=== PATIENT | female | born 1995 | race Caucasian/White ===

== ENCOUNTER 2023-05-11 07:39 | Outpatient (AMB) | payer OTHER, SELFPAY ==
[2023-05-11 07:41] VITALS: BP 102/66; PULSE 92; O2SAT 97; BMI 42.4
--- NOTE | 2023-05-11 07:41 | A.OFFPC_ITS ---
Vital Signs 05/11/23 07:41 Height 5 ft 5 in Weight 255 lb BMI 42.4 BP 102/66 Blood Pressure Location Lt brachial Position Sitting Pulse 92 Pulse Source Pulse Oximeter Pulse Oximetry (%) 97 Oxygen Delivery Method Room Air Intake Visit Reasons: New patient-Follow up on broken right leg Intake Note: Pt is here today for New patient visit PE. Allergies No Known Allergies Allergy (Verified 05/11/23 07:43) Medication List - Last Reconciled 05/11/23 by Deysi Worrell MD acetaminophen 1,000 mg PO Q8H PRN naproxen sodium 275 mg PO BID PRN Tobacco use date assessed: 05/11/23 Dental Screening Dental Screen Date: 05/11/23 Did you have a dental visit in the last 12 months?: Yes Did you have a dental problem in the last 6 months where you did not have access to dental care?: No Was dental information given to patient?: Patient has dentist HPI New patient-Follow up on broken right leg HPI Details Pt presents for [employer] PE. [facility] Medical History (Updated 05/11/23 @ 08:10 by Deysi Worrell MD) Recent surgical procedure on lower extremity Family History Father No problems noted. 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 1. Little interest or pleasure in doing things: not at all 2. Feeling down, depressed, or hopeless: not at all 3. Trouble falling or staying asleep, or sleeping too much: not at all 4. Feeling tired or having little energy: several days 5. Poor appetite or overeating: not at all 6. Feeling bad about yourself - or that you are a failure or have let yourself or your family down: not at all 7. Trouble concentrating on things, such as reading the newspaper or watching television: several days 8. Moving or speaking so slowly that other people could have noticed. Or the opposite - being so fidgety or restless that you have been moving around a lot more than usual: not at all 9. Thoughts that you would be better off or of hurting yourself in some way: not at all Total score: 2 Depression Screening Interpretation: Negative Source: Developed by Drs. Daren Ruiz, Noelle Guallpa, Pillo Ricketts and colleagues, with an educational kim from [employer]. Thrive Questionnaire Date Thrive assessed: 05/11/23 I am a: Patient What is your living situation today?: I have a steady place to live Within the past 12 months, did the food you bought not last and you didn't have the money to get more?: Never true Within the past 12 months, did you worry whether your food would run out before you got money to buy more?: Never true Do you have trouble paying for medicines?: No Do you have trouble getting transportation to medical appointments?: No Do you have trouble paying your heating and electricity bill?: No Do you have trouble taking care of your child, family member or friend?: No Do you have trouble with day-to-day activities such as bathing, preparing meals, shopping, managing finances, etc.?: No Are you currently unemployed and looking for a job?: No Are you interested in more education?: No Please select the resources that you would like help with: None Currently or been in a relationship where the following occur: no concerns reported AUDIT C Alcohol Use Questionnaire (AUDIT-C) 1. How often do you have a drink containing alcohol?: Monthly or less 2. How many drinks containing alcohol do you have on a typical day when you are drinking?: 1 or 2 3. How often do you have six or more drinks on one occasion?: Never Total Score: 1 ABIGAIL-7 AMB Questionnaire ABIGAIL-7 Date ABIGAIL - 7 assessed: 05/11/23 Feeling nervous, anxious, or on edge: 0 = Not at all Not being able to stop or control worryin = More than half the days Worrying too much about different things: 2 = More than half the days Trouble relaxin = Several days Being so restless that it is hard to sit still: 1 = Several days Becoming easily annoyed or irritable: 2 = More than half the days Feeling afraid as if something awful might happen: 2 = More than half the days Total ABIGAIL-7 score (0-4 normal; 5-9 mild; 10-14 moderate; 15-21 severe): 10 Source: Developed by Drs. Daren Ruiz, Noelle Guallpa, Pillo Ricketts and colleagues, with an educational kim from [employer]. Review of Systems Const All systems reviewed & are unremarkable except as noted in HPI and below Reports no additional complaints Eyes Reports no additional complaints ENT Reports no additional complaints Card Reports no additional complaints Resp Reports no additional complaints GI Reports no additional complaints Reports no additional complaints Physical exam (Primary Care) Vital Signs: Last Vital Signs Pulse 92 05/11/23 07:41 BP 102/66 05/11/23 07:41 Pulse Ox 97 05/11/23 07:41 Oxygen Delivery Method Room Air 05/11/23 07:41 BMI result Body Mass Index 42.4 Tobacco/Smoking Status: Tobacco use Status Tobacco use date assessed 05/11/23 05/11/23 07:53 Patient Tobacco Use Status Never used Tobacco 05/11/23 07:53 e-Cigarette/Vaping Use Never Used 05/11/23 07:53 Depression Screening Interpretation: Negative Currently or been in a relationship where the following occur: no concerns reported Const General: no acute distress HENMT Head: Yes normal to inspection Ears: hearing grossly normal bilaterally General nose exam: Normal external nose present Face and sinus: Yes normal facial exam Mouth: Normal oral and palatal mucosa present Throat: Yes posterior oropharynx normal Eyes General: appearance normal, both eyes and all related structures Neck Neck: Yes no lymphadenopathy and Yes supple Resp Effort & Inspection: normal respiratory effort Auscultation: clear to auscultation bilaterally Cardio Rhythm: regular rhythm Heart sounds: S1 normal heart sound present and S2 normal heart sound present GI Inspection: Yes normal to inspection Palpation (GI): Soft to palpation Percussion: Yes normal to percussion Auscultation: normal bowel sounds Assessment and Plan Assessment & Plan (1) Overweight: Code(s): E66.3 - Overweight Plan: Increasing physical activity weight loss discussed with the patient (2) Annual physical exam: Code(s): Z00.00 - Encounter for general adult medical examination without abnormal findings Plan: Patient with fasting blood work, she follows up with farm helper for Pap smear (3) Normal pelvic exam: Comment: CHARLES Saldivar Code(s): Z01.419 - Encounter for gynecological examination (general) (routine) without abnormal findings (4) Miscarriage: Comment: at 4 month twins Code(s): O03.9 - Complete or unspecified spontaneous without complication Orders: Orders Comprehensive [place]. Panel Fast Today Z00.00 - Encounter for general adult medical examination without abnormal findings Lipid Panel Today Z00.00 - Encounter for general adult medical examination without abnormal findings TSH reflex Free T4 Today Z00.00 - Encounter for general adult medical examination without abnormal findings Complete Blood Count Auto Diff Today Z00.00 - Encounter for general adult medical examination without abnormal findings YONG Reflex Titer and Pattern Today O03.9 - Complete or unspecified spontaneous without complication, Z00.00 - Encounter for general adult medical examination without abnormal findings Lupus Anticoagulant Panel Today Z00.00 - Encounter for general adult medical examination without abnormal findings UA w Microscopic Today Z00.00 - Encounter for general adult medical examination without abnormal findings Coding Level of Care Code Est Pt Prev Care 18-39y(62206) Diagnoses Overweight E66.3 Annual physical exam Z00.00 Normal pelvic exam Z01.419 Miscarriage O03.9
== END 2023-05-11 08:52 | disposition home or self-care (01) ==
PROVIDERS: PCP Internal Medicine; Visit Provider Internal Medicine
DX: Z00.00 Encounter for general adult medical examination without abnormal findings (principal); E66.01 Morbid (severe) obesity due to excess calories; Z68.41 Body mass index [BMI] 40.0-44.9, adult
CPT/HCPCS: 99395

== ENCOUNTER 2023-05-11 08:26 | Outpatient (REF) | payer OTHER, SELFPAY ==
[2023-05-11 11:28] LABS: MANUAL DIFF FLAG NO
[2023-05-11 11:29] LABS: Basophils Percent Auto 0.5 % (0-2); Eosinophils Absolute Auto 0.2 X10*3/uL (0.0-0.4); Eosinophils Percent Auto 3.6 % (0-4); Hematocrit 43.1 % (37.0-47.0); Hemoglobin 14.2 g/dl (12.0-16.0); Imm Gran Abs Auto 0.02 X10*3/uL (0.00-0.03); Imm Gran Pct Auto 0.3 % (0.0-0.4); Lymphocytes Percent Auto 33.7 % (20-40); Mean Corpuscular HGB Conc 32.9 g/dl (31.0-35.0); Mean Corpuscular Hemoglobin 28.3 pg (27.0-33.0); Mean Platelet Volume 10.3 fL (9.4-12.3); Monocytes Absolute Auto 0.4 X10*3/uL (0.1-1.2); Monocytes Percent Auto 6.7 % (2-11); Neutrophils Absolute Auto 3.2 x10*3/uL (2.0-8.3); Neutrophils Percent Auto 55.2 % (45-73); Platelet Count 272 X10*3/uL (160-400); Red Blood Count 5.01 X10*6/uL (4.20-5.50); Red Cell Distribution Width 12.2 % (11.0-16.0); White Blood Count 5.8 X10*3/uL (4.8-10.8)
[2023-05-11 11:52] LABS: Appearance Urine Clear; Color Urine Yellow; Glucose Urine UA Negative (Negative); Leukocyte Esterase Urine Negative (Negative); Nitrite Urine Negative (Negative); Specific Gravity - Urine 1.025 (1.005-1.025); UMIC TRIGGER UA YES; Urine Blood Trace (Negative); Urine Ketones Trace mg/dL (Negative); Urine Protein Negative (Neg-Trace)
[2023-05-11 11:55] LABS: Bacteria Urine 1+ (None Seen); Hyaline Casts Urine 0-2 /LPF (0-2); RBC Urine 0-2 /HPF (0-2); WBC Urine 0-5 /HPF (0-5)
[2023-05-11 12:14] LABS: Alanine Aminotransferase 18 U/L (0-31); Albumin Level 4.1 g/dL (3.5-5.0); Alkaline Phosphatase 49 U/L (39-117); Anion Gap 11 (12-20); Aspartate Amino Transferase 14 U/L (5-31); Bilirubin Total 0.4 mg/dL (0.0-1.0); Blood Urea Nitrogen 16 mg/dL (9-16); Calcium 9.2 mg/dL (8.4-10.2); Carbon Dioxide 28 mmol/L (22-29); Chloride 106 mmol/L (96-108); Cholesterol 165 mg/dL; Estimated Glomerular Filt Rate > 60; Glucose Fasting 93 mg/dL (60-99); HDL Cholesterol 40 mg/dL; LDL Cholesterol Calculated 110 mg/dl; Potassium 4.5 mmol/L (3.3-5.1); Sodium 140 mmol/L (135-145); Total Protein 7.2 g/dL (6.5-8.0); Triglycerides 79 mg/dL
[2023-05-14 07:54] LABS: PTT (LAC) Screen 33 sec (<=40)
[2023-05-14 13:29] LABS: Anti Nuclear Antibody Screen NEGATIVE (NEGATIVE)
== END 2023-05-11 08:27 | disposition home or self-care (01) ==
LOC: HO.HMGCLDS 08:26
PROVIDERS: PCP Internal Medicine; Visit Provider Internal Medicine
DX: Z00.01 Encounter for general adult medical examination with abnormal findings (principal); O03.9 Complete or unspecified spontaneous abortion without complication
CPT/HCPCS: 36415; 80053; 80061; 81001; 84443; 85025; 85597; 85598; 85613; 85670; 85730; 86038

== ENCOUNTER 2024-11-16 08:57 | Outpatient (AMB) | payer BC, SELFPAY ==
--- NOTE | 2024-11-16 08:58 | MHC.PC.OV ---
Vital Signs 11/16/24 09:00 Height 5 ft 5.5 in Weight 256 lb BMI 41.9 BP 102/62 Blood Pressure Location Lt brachial Position Sitting Respiration 16 Pulse 87 Pulse Source Pulse Oximeter Temp 98.2 F Temp Source Oral Pulse Oximetry (%) 99 Oxygen Delivery Method Room Air Intake Visit Reasons: rash hands and feet Intake Note: Pt is here today c/o rash on bilateral hands and feet Allergies No Known Allergies Allergy (Verified 11/16/24 09:00) Medication List - Last Reconciled 11/16/24 by Deysi Worrell MD ketoconazole 400 mg (2 x 200 mg) PO DAILY ketoconazole 2% 1 appl topical BID Tobacco use date assessed: 11/16/24 Dental Screening Dental Screen Date: 11/16/24 Did you have a dental visit in the last 12 months?: Yes Did you have a dental problem in the last 6 months where you did not have access to dental care?: Yes Was dental information given to patient?: Patient has dentist HPI rash hands and feet HPI Details Patient presents complaining of itchy rash on her hands and feet for 6 months. 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 Patient tried [id number]-qodhhiv antifungal cream and has been using different hand moisturizers without improvement. [facility] Medical History (Updated 11/16/24 @ 09:40 by Deysi Worrell MD) Recent surgical procedure on lower extremity Family History Father No problems noted. Mother Lupus Cervical cancer Maternal Grandmother Cancer Paternal Grandmother Lung cancer Social History (Updated 05/11/23 @ 08:08 by Deysi Worrell MD) Household Members Other:: lives with partner, [employer] Housing: House Patient Tobacco Use Status: Never used Tobacco e-Cigarette/Vaping Use: Never Used Current occupational status: employed Cognitive needs: No Hearing needs: No Vision needs: Yes Questionnaire Thrive Questionnaire Date Thrive assessed: 11/16/24 I am a: Patient What is your living situation today?: I have a steady place to live Within the past 12 months, did the food you bought not last and you didn't have the money to get more?: Never true Within the past 12 months, did you worry whether your food would run out before you got money to buy more?: Never true Do you have trouble paying for medicines?: No Do you have trouble getting transportation to medical appointments?: No Do you have trouble paying your heating and electricity bill?: No Do you have trouble taking care of your child, family member or friend?: No Do you have trouble with day-to-day activities such as bathing, preparing meals, shopping, managing finances, etc.?: No Are you currently unemployed and looking for a job?: No Are you interested in more education?: No Please select the resources that you would like help with: None THRIVE Score: 0 AUDIT C Alcohol Use Questionnaire (AUDIT-C) 1. How often do you have a drink containing alcohol?: Monthly or less 2. How many drinks containing alcohol do you have on a typical day when you are drinking?: 1 or 2 3. How often do you have six or more drinks on one occasion?: Never Total Score: 1 ABIGAIL-7 AMB Questionnaire ABIGAIL-7 Date ABIGAIL - 7 assessed: 11/16/24 Feeling nervous, anxious, or on edge: 0 = Not at all Not being able to stop or control worryin = More than half the days Worrying too much about different things: 2 = More than half the days Trouble relaxin = Several days Being so restless that it is hard to sit still: 1 = Several days Becoming easily annoyed or irritable: 2 = More than half the days Feeling afraid as if something awful might happen: 2 = More than half the days Total ABIGAIL-7 score (0-4 normal; 5-9 mild; 10-14 moderate; 15-21 severe): 10 Source: Developed by Drs. Daren Ruiz, Noelle Guallpa, Pillo Rciketts and colleagues, with an educational kim from [employer]. Review of Systems Const All systems reviewed & are unremarkable except as noted in HPI and below Eyes Reports no additional complaints ENT Reports no additional complaints Card Reports no additional complaints Resp Reports no additional complaints GI Reports no additional complaints Reports no additional complaints Physical exam (Primary Care) Vital Signs: Last Vital Signs Temp 98.2 F 11/16/24 09:00 Pulse 87 11/16/24 09:00 Resp 16 11/16/24 09:00 BP 102/62 11/16/24 09:00 Pulse Ox 99 11/16/24 09:00 Oxygen Delivery Method Room Air 11/16/24 09:00 BMI result Body Mass Index 41.9 Tobacco/Smoking Status: Tobacco use Status Tobacco use date assessed 11/16/24 11/16/24 09:01 Patient Tobacco Use Status Never used Tobacco 11/16/24 09:01 e-Cigarette/Vaping Use Never Used 11/16/24 09:01 Thrive Assessment: Date of Thrive Assessment Date Thrive assessed 11/16/24 11/16/24 09:04 Const General: no acute distress Neck Neck: Yes no lymphadenopathy and Yes supple Resp Effort & Inspection: normal respiratory effort Auscultation: clear to auscultation bilaterally Cardio Rhythm: regular rhythm Heart sounds: S1 normal heart sound present and S2 normal heart sound present Skin Other: There is erythematous scaling rash on the palms of the hands and plantar aspect of feet and vesicular erythematous rash between toes Coding Level of Care Code Est Pt Level 3 (02707) Diagnoses Tinea cruris B35.6 Eczema L30.9 Assessment & Plan Assessment & Plan (1) Tinea cruris: Code(s): B35.6 - Tinea cruris Category: Medical Plan: Ketoconazole 400 mg daily for 1 week as prescribed. Skin care including avoiding prolonged moisture exposure changing shoes (2) Eczema: Code(s): L30.9 - Dermatitis, unspecified Category: Medical Plan: Patient was advised to avoid harsh antibacterial hand soaps. Patient was advised to Use hand moisturizer after each hand washing and avoid prolonged exposure to moisture. She will try clobetasol cream at night Orders: Orders Complete Blood Count Auto Diff 5 Months Z00.00 - Encounter for general adult medical examination without abnormal findings UA w Microscopic 5 Months Z00.00 - Encounter for general adult medical examination without abnormal findings Comprehensive [place]. Panel Fast 5 Months Z00.00 - Encounter for general adult medical examination without abnormal findings TSH reflex Free T4 5 Months Z00.00 - Encounter for general adult medical examination without abnormal findings Lipid Panel 5 Months Z00.00 - Encounter for general adult medical examination without abnormal findings Medications: New ketoconazole 400 mg (2 x 200 mg) PO DAILY 14 tabs 0RF ketoconazole 2% 1 appl topical BID 60 grams 1RF clobetasol 0.05% 1 appl topical BEDTIME 45 grams 0RF
[2024-11-16 09:00] VITALS: BP 102/62; PULSE 87; RESP 16; TEMP 36.8; O2SAT 99; BMI 41.9
--- OUTSIDE RECORDS SUMMARY | 2024-11-16 09:29 | XMS_ITS | Encounter Summary ---
Author Organization [facility] Address [address] [place] [address] Phone Care Team Providers Care Dairy Worker Name Role Phone Siva Figueroa MD Primary Care Provider [phone] Encounter Details Date Type Department Care Team (Late st Contact Info) Description 01/01/2015 Conversion Encounter [facility] [address] [place] [address] Social History Tobacco Use Types Packs/Day Years Used Date Smoking Tobacco: Never Assessed Comments Unknown Sex and Gender Information Value Date Recorded Sex Assigned at Not on file Legal Sex Female 6:38 PM EDT Gender Identity Not on file Sexual Orientation Not on file documented as of this encounter Plan of Treatment Not on file documented as of this encounter Visit Diagnoses Not on filedocumented in this encounter Care Teams Dairy Worker Relationship Specialty Start Date End Date Siva Figueroa MD [address] [place] [address] PCP - General 02/02/18 documented as of this encounter
--- OUTSIDE RECORDS SUMMARY | 2024-11-16 09:29 | XMS_ITS | Clinical Summary ---
Author Organization [facility] Address [address] [place] [address] Phone Care Team Providers Care Lighting Fixtures Decorator Name Role Phone Siva Figueroa MD Primary Care Provider [phone] Social History Tobacco Use Types Packs/Day Years Used Date Smoking Tobacco: Never Assessed Comments Unknown Sex and Gender Information Value Date Recorded Sex Assigned at Not on file Legal Sex Female 6:38 PM EDT Gender Identity Not on file Sexual Orientation Not on file Plan of Treatment Health Maintenance Due Date Last Done Comments MMR Vaccines (1 of 1 - Stand margoth series) 1996 Varicella Vaccines (1 of 2 - 13+ 2-dose series) 2008 Consider Men B Vaccine (1 of 2 - Bexsero 2-dose series) 2011 DTaP,Tdap,and Td Vaccines (1 - Tdap) 2013 Hepatitis B Vaccines (1 of 3 - 19+ 3-dose series) 2014 Influenza Vaccines (#1) 2024 COVID-19 Vaccine (1 - 2023-2 5 season) 2024 HIB Vaccines Aged Out No longer eligi ble based on patient's age to complete this topic HPV Vaccines Aged Out No longer eligi ble based on patient's age to complete this topic Hepatitis A Vaccines Aged Out No long er eligible based on patient's age to complete this topic IPV Vaccines Aged Out No longer eligi ble based on patient's age to complete this topic Men B Vaccine Aged Out No longer elig ible based on patient's age to complete this topic Meningococcal Vaccine Aged Out No mayelin vignesh eligible based on patient's age to complete this topic Pneumococcal Vaccine Aged Out No long er eligible based on patient's age to complete this topic Care Teams Lighting Fixtures Decorator Relationship Specialty Start Date End Date Siva Figueroa MD [address] [place] [address] [place] [address] [facility] - General 02/02/18
== END 2024-11-16 09:44 | disposition home or self-care (01) ==
PROVIDERS: PCP Internal Medicine; Visit Provider Internal Medicine
DX: B35.6 Tinea cruris (principal); L30.9 Dermatitis, unspecified

== ENCOUNTER 2025-04-18 13:00 | Outpatient (REF) | payer BC, SELFPAY ==
[2025-04-18 16:34] LABS: MANUAL DIFF FLAG NO
[2025-04-18 16:39] LABS: Hematocrit 43.7 % (37.0-47.0); Hemoglobin 14.6 g/dl (12.0-16.0); Imm Gran Abs Auto 0.06 X10*3/uL (0.00-0.03); Imm Gran Pct Auto 0.6 % (0.0-0.4); Lymphocytes Absolute Auto 2.2 X10*3/uL (1.2-4.9); Mean Corpuscular HGB Conc 33.4 g/dl (31.0-35.0); Mean Corpuscular Hemoglobin 29.0 pg (27.0-33.0); Mean Corpuscular Volume 86.9 fL (80.0-98.0); NRBC Abs Auto 0.000 X10*3/uL (0.0-0.012); NRBC Pct Auto 0.0 /100WBC (0.0-0.2); Platelet Count 256 X10*3/uL (160-400); Red Blood Count 5.03 X10*6/uL (4.20-5.50); White Blood Count 9.6 X10*3/uL (4.8-10.8)
[2025-04-18 16:57] LABS: Alanine Aminotransferase 19 U/L (0-31); Albumin Level 4.3 g/dL (3.5-5.0); Alkaline Phosphatase 57 U/L (39-117); Anion Gap 10 (12-20); Aspartate Amino Transferase 18 U/L (5-31); Blood Urea Nitrogen 10 mg/dL (9-16); Calcium 9.0 mg/dL (8.4-10.2); Carbon Dioxide 29 mmol/L (22-29); Chloride 105 mmol/L (96-108); Cholesterol 166 mg/dL (<200); Estimated Glomerular Filt Rate > 60; HDL Cholesterol 45 mg/dL (>40); Potassium 3.9 mmol/L (3.3-5.1); Sodium 140 mmol/L (135-145); Total Protein 6.8 g/dL (6.5-8.0); Triglycerides 59 mg/dL (<150)
== END 2025-04-18 13:01 | disposition home or self-care (01) ==
LOC: HO.HMGCLDS 13:00
PROVIDERS: PCP Internal Medicine; Visit Provider Internal Medicine
DX: Z00.00 Encounter for general adult medical examination without abnormal findings (principal); E66.3 Overweight; Z68.37 Body mass index [BMI] 37.0-37.9, adult
CPT/HCPCS: 36415; 80053; 80061; 84443; 85025

== ENCOUNTER 2025-04-18 13:00 | Outpatient (AMB) | payer BC, SELFPAY ==
--- OUTSIDE RECORDS SUMMARY | 2024-03-01 08:55 | XMS_ITS | Encounter Summary ---
Author Organization [facility] Address [address] [place] [address] Phone Care Team Providers Care Child Abuse Worker Name Role Phone Deysi Worrell MD Primary Care Provider [phone] Encounter Details Date Type Department Care Team (Late st Contact Info) Description 03/01/2024 8:55 AM EDT Hospital Encounter [facility] [address] [place] [phone] Yane Carrillo, PHYSICIAN AIDE [address] [place] [address] [email or web address] Social History Tobacco Use Types Packs/Day Years Used Date Smoking Tobacco: Never Smokeless Tobacco: Never Alcohol Use Standard Drinks/Week Comments Yes 0 (1 standard drink = 0.6 oz pur e alcohol) socially Education Answer Date Recorded Are you interested in more education? Not on armando e 01/23/2023 Are you concerned about learning? Not on file 01/23/2023 No 01/23/2023 No 01/23/2023 Digital Access Answer Date Recorded No 02/21/2023 No 02/21/2023 Reliable internet access at home? Not on file 02/21/2023 Device with a working camera? Not on file Intimate Partner Violence Answer Date R ecorded Are you denied basic needs s uch as food, clothing, or medical care? No 12/19/2024 In the past 12 months have y ou been in a relationship with a person who hurts, threatens, or tries to control you? No 12/19/2024 Are you denied basic needs s uch as food, clothing, or medical care? No 12/19/2024 In the past 12 months have y ou been in a relationship with a person who hurts, threatens, or tries to control you? No 12/19/2024 Comments Unknown Sex and Gender Information Value Date Recorded Sex Assigned at Female 04/22/2022 7:53 AM EDT Legal Sex Female 7:45 AM EDT Gender Identity Female 04/22/2022 7:53 AM EDT Sexual Orientation Straight 12/20/2024 1: 10 AM EDT documented as of this encounter Functional Status * Calculated C-SSRS Risk Score (Lifetime/Recent) Answer Date of Assessment Author No Risk Indicated 12/19/2024 11:12 PM EDT Patti Oquendo RN * [place] Suicide Severity Rating Scale (Screener/Recent Self-Report) Question Answer Date of Assessment Author 1. Wish to be (Past 1 Month) No 12/19/2024 11:12 PM EDT Patti Oquendo RN 2. Non-Specific Active Suicidal Thoughts (Past 1 Month) No 12/19/2024 11:12 PM EDT Patti Oquendo RN 6. Suicidal Behavior (Lifetime) No 12/19/2024 11:12 PM EDT Patti Oquendo RN documented as of this encounter Plan of Treatment Not on file documented as of this encounter Procedures Procedure Name Priority Date/Time Associated Diagnosis Comments XR CHEST PA AND LATERAL 2 VIEWS Urgent/patient waiting 03/01/2024 9:03 AM EDT Dyspnea, unspecified type documented in this encounter Results * XR CHEST PA AND LATERAL 2 VIEWS (03/01/2024 9:03 AM EDT) Anatomical Region Laterality Modality Chest Computed Radiogr aphy 03/01/2024 9:12 AM EDT Impressions 03/01/2024 9:13 AM EDT No acute abnormality. Narrative 03/01/2024 9:13 AM EDT XR CHEST PA AND LATERAL 2 VIEWS Referring clinician's provided indication for this examination in Epic: Cough; Dyspnea (Shortness of Breath) COMPARISON: None available. FINDINGS: Devices/Tubes/Lines: None. Lungs: The lungs are clear. No focal consolidation or pulmonary edema. Pleura: No pleural effusion or pneumothorax. Heart/Mediastinum: The heart and mediastinum are normal. Bones/Soft Tissues: No acute osseous abnormality. Procedure Note Adilson Fairchild MBBS - 03/01/2024 XR CHEST PA AND LATERAL 2 VIEWS Referring clinician's provided indication for this examination in [facility]:Cough; Dyspnea (Shortness of Breath) COMPARISON: None available. FINDINGS: Devices/Tubes/Lines: None. Lungs: The lungs are clear. No focal consolidation or pulmonary edema. Pleura: No pleural effusion or pneumothorax. Heart/Mediastinum: The heart and mediastinum are normal. Bones/Soft Tissues: No acute osseous abnormality. IMPRESSION: No acute abnormality. Yane Carrillo PHYSICIAN AIDE IMG XR CHEST Final R esult documented in this encounter Visit Diagnoses Not on filedocumented in this encounter Additional Health Concerns Infection Onset Date Last Indicated Resolved Time CoV-Risk 03/01/2024 03/01/2024 03/12/2024 1:21 AM EDT documented as of this encounter Care Teams Child Abuse Worker Relationship Specialty Start Date End Date Deysi Worrell MD [facility] [place] [address] PCP - General Internal Medicine 03/01/24 documented as of this encounter Additional Source Comments The information contained in this document represents components of the legal health record. It is not the complete legal health record.[facility]
[2025-04-18 13:01] VITALS: BP 108/64; PULSE 85; RESP 18; TEMP 36.9; O2SAT 99; BMI 37.7
--- NOTE | 2025-04-18 13:01 | MHC.PC.OV ---
Vital Signs 04/18/25 13:01 Height 5 ft 5.5 in Weight 230 lb BMI 37.7 BP 108/64 Blood Pressure Location Lt brachial Position Sitting Respiration 18 Pulse 85 Pulse Source Pulse Oximeter Temp 98.4 F Temp Source Oral Pulse Oximetry (%) 99 Oxygen Delivery Method Room Air Intake Visit Reasons: Annual PE Intake Note: Pt is here today for PE. Allergies No Known Allergies Allergy (Verified 04/18/25 13:12) Medication List - Last Reconciled 04/18/25 by Deysi Worrell MD clobetasol 0.05% 1 appl topical BEDTIME ketoconazole 2% 1 appl topical BID Tobacco use date assessed: 04/18/25 Dental Screening Dental Screen Date: 04/18/25 Did you have a dental visit in the last 12 months?: Yes Did you have a dental problem in the last 6 months where you did not have access to dental care?: No Was dental information given to patient?: Patient has dentist HPI Annual PE HPI Details Patient presents for physical. She had broke up with her boyfriend a week ago after 9 years of relationship. [facility] Medical History (Updated 04/18/25 @ 13:38 by Deysi Worrell MD) Annual physical exam Normal pelvic exam Overweight Recent surgical procedure on lower extremity Family History Father No problems noted. 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 Housing: House Patient Tobacco Use Status: Never used Tobacco e-Cigarette/Vaping Use: Never Used service: No Current occupational status: employed Cognitive needs: No Hearing needs: No Vision needs: Yes Questionnaire Thrive Questionnaire Date Thrive assessed: 11/16/24 I am a: Patient What is your living situation today?: I have a steady place to live Within the past 12 months, did the food you bought not last and you didn't have the money to get more?: Sometimes True Within the past 12 months, did you worry whether your food would run out before you got money to buy more?: Sometimes True Do you have trouble paying for medicines?: No Do you have trouble getting transportation to medical appointments?: No Do you have trouble paying your heating and electricity bill?: No Do you have trouble taking care of your child, family member or friend?: No Do you have trouble with day-to-day activities such as bathing, preparing meals, shopping, managing finances, etc.?: No Are you currently unemployed and looking for a job?: No Are you interested in more education?: No Please select the resources that you would like help with: None Currently or been in a relationship where the following occur: No concerns reported THRIVE Score: 2 ABIGAIL-7 AMB Questionnaire ABIGAIL-7 Date ABIGAIL - 7 assessed: 11/16/24 Source: Developed by Drs. Daren Ruiz, Noelle Guallpa, Pillo Ricketts and colleagues, with an educational kim from [employer]. Review of Systems Const All systems reviewed & are unremarkable except as noted in HPI and below Eyes Reports no additional complaints ENT Reports no additional complaints Card Reports no additional complaints Resp Reports no additional complaints GI Reports no additional complaints Reports no additional complaints Physical exam (Primary Care) Vital Signs: Last Vital Signs Temp 98.4 F 04/18/25 13:01 Pulse 85 04/18/25 13:01 Resp 18 04/18/25 13:01 BP 108/64 04/18/25 13:01 Pulse Ox 99 04/18/25 13:01 Oxygen Delivery Method Room Air 04/18/25 13:01 BMI result Body Mass Index 37.7 Tobacco/Smoking Status: Tobacco use Status Tobacco use date assessed 04/18/25 04/18/25 13:17 Patient Tobacco Use Status Never used Tobacco 04/18/25 13:02 e-Cigarette/Vaping Use Never Used 04/18/25 13:02 Thrive Assessment: Date of Thrive Assessment Date Thrive assessed 11/16/24 04/18/25 13:02 Currently or been in a relationship where the following occur: No concerns reported Const General: no acute distress HENMT Head: Yes normal to inspection Ears: TM's normal bilaterally Face and sinus: Yes normal facial exam Mouth: Normal oral and palatal mucosa present Throat: Yes posterior oropharynx normal Eyes General: appearance normal, both eyes and all related structures Neck Neck: Yes no lymphadenopathy and Yes supple Resp Effort & Inspection: normal respiratory effort Auscultation: clear to auscultation bilaterally Cardio Rhythm: regular rhythm Heart sounds: S1 normal heart sound present and S2 normal heart sound present GI Inspection: Yes normal to inspection Palpation (GI): Soft to palpation Percussion: Yes normal to percussion Auscultation: normal bowel sounds Coding Level of Care Code Est Pt Prev Care 18-39y(54515) Diagnoses Overweight E66.3 Annual physical exam Z00.00 Assessment & Plan Assessment & Plan (1) Overweight: Code(s): E66.3 - Overweight Category: Medical Plan: Continue regular physical activity decreasing caloric intake and weight loss (2) Annual physical exam: Code(s): Z00.00 - Encounter for general adult medical examination without abnormal findings Category: Medical Plan: Well-balanced diet regular physical activity discussed with the patient. She is established with health education specialist for Pap and pelvic exam
--- OUTSIDE RECORDS SUMMARY | 2025-04-18 13:28 | XMS_ITS | Encounter Summary ---
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
== END 2025-04-18 13:39 | disposition home or self-care (01) ==
LOC: HO.HMCC 13:01
PROVIDERS: PCP Internal Medicine; Visit Provider Internal Medicine
DX: E66.3 Overweight (principal); Z00.00 Encounter for general adult medical examination without abnormal findings